=== PATIENT | male | born 1945 | race African-American/Black ===

== ENCOUNTER 2016-06-08 15:25 | Inpatient (IN) | payer SELFPAY ==
[~2016-06-08] VITALS: Ht 175.3 cm; Wt 56.7 kg
[2016-06-08] MEDS ORDERED: ZANTAC150 MG ORAL (15:46)
[2016-06-08] MEDS ORDERED: Pantoprazole Inj IV ONE (16:00)
--- NOTE | 2016-06-08 16:01 | Emergency Room Report ---
History of Present Illness General Chief Complaint: Abnormal Labs Source: Patient, Medical Record Present Illness HPI Patient sent by the [facility] for low H&H. The patient has been passing dark stool. In the past he said that he had blood transfusions - however, this is not certain. He says he's had problems with his kidneys also appeared has had dark urine and possibly passing blood in his urine earlier today. Is a history of an enlarged prostate. The patient's been symptomatic with the low H&H feeling some dyspnea on exertion and also dizziness when he stands up. Actually, with review with daughter, never received blood transfusions before. No NVD, extremity pain. No chest pain, dyspnea, productive cough, polies. Allergies: Coded Allergies: No Known Allergies (Unverified , 06/08/16) Patient History Past Medical History: see triage record Social History: Reports: smoking Social History Narrative born [place] Reviewed Nursing Documentation: PMH: Agreed, PSxH: Agreed Nursing Documentation-PMH Past Medical History: No History, Except For Hx Gastrointestinal Problems: Yes - Liver cirrhosis Review of Systems All Other Systems: negative except mentioned in HPI Physical Exam Vital Signs Date Time Temp Pulse Resp B/P Pulse Ox O2 Delivery O2 Flow Rate FiO2 06/08/16 15:38 98.2 68 16 160/71 100 Room Air Sp02 EP Interpretation: reviewed, normal General Appearance: well appearing, no apparent distress, GCS 15, thin Head: normocephalic Eyes: bilateral eye PERRL, bilateral eye conjunctivae pale ENT: moist mucus membranes Neck: supple Respiratory: lungs clear, normal breath sounds Cardiovascular #1: regular rate, rhythm Cardiovascular #2: 2+ radial (R) Gastrointestinal: normal inspection, normal bowel sounds, non tender, no mass, non-distended Rectal: heme negative stool - brown Musculoskeletal: back normal, gait/station normal, normal range of motion Neurologic: alert, oriented x3, motor strength/tone normal, DTRs symmetric, sensory intact, cerebellar normal, normal gait, speech normal Psychiatric: mood/affect normal Skin: no rash, pallor Medical Decision Making Diagnostic Impression: Primary Impression: Profound anemia Qualified Codes: D50.8 - Other iron deficiency anemias Additional Impressions: RLL mass UTI (urinary tract infection) Qualified Codes: N30.00 - Acute cystitis without hematuria Renal insufficiency ER Course The patient presents with abnormal laboratory values and low H&H with black stools. Differential includes lower GI bleed, symptomatic anemia, upper GI bleed. Stool is negative at this time. Labs remarkable for profound anemia. In addition he's got renal insufficiency. His x-ray is read as having a right lower lobe mass according to the radiologist. Belly films are unremarkable. I discussed risks and benefits of blood transfusion with the patient. He agreed to have transfusions. He became to the hospital for further evaluation. Also there is evidence of a urinary tract infection antibiotics were begun. Admit med Dr. Troncoso Laboratory Tests Test 06/08/16 16:10 06/08/16 16:16 Urine Color Pale yellow Urine Appearance Clear Urine pH 6 (4.5-8.0) Urine Specific [place] 1.010 (1.005-1.035) Urine Protein 2+ (NEGATIVE) H Urine Glucose (UA) Negative (NEGATIVE) Urine Ketones Negative (NEGATIVE) Urine Occult Blood Negative (NEGATIVE) Urine Nitrite Negative (NEGATIVE) Urine Bilirubin Negative (NEGATIVE) Urine Urobilinogen Normal MG/DL (0.0-1.0) Urine Leukocyte Esterase 2+ (NEGATIVE) H Urine RBC 5-10 /HPF (0 - 0) H Urine WBC Tntc /HPF (0 - 0) H Urine Squamous Epithelial Cells Moderate /LPF (NONE/OCC) H Urine Bacteria Moderate /HPF (NONE) H White Blood Count 8.3 K/UL (4.8-10.8) Red Blood Count 3.24 M/UL (4.70-6.10) L Hemoglobin 7.6 G/DL (14.2-18.0) L Hematocrit 24.3 % (42.0-52.0) L Mean Corpuscular Volume 75 FL (80-99) L Mean Corpuscular Hemoglobin 23.3 PG (27.0-31.0) L Mean Corpuscular Hemoglobin Concent 31.1 G/DL (32.0-36.0) L Red Cell Distribution Width 15.8 % (11.6-14.8) H Platelet Count 456 K/UL (150-450) H Mean Platelet Volume 5.9 FL (6.5-10.1) L Neutrophils (%) (Auto) % (45.0-75.0) Lymphocytes (%) (Auto) % (20.0-45.0) Monocytes (%) (Auto) % (1.0-10.0) Eosinophils (%) (Auto) % (0.0-3.0) Basophils (%) (Auto) % (0.0-2.0) Neutrophils % (Manual) Pending Lymphocytes % (Manual) Pending Platelet Estimate Pending Platelet Morphology Pending Prothrombin Time 10.6 SEC (9.30-11.50) Prothrombin Time INR 1.0 (0.9-1.1) PTT 29 SEC (23-33) Sodium Level 141 mEQ/L (135-145) Potassium Level 4.4 mEQ/L (3.4-4.9) Chloride Level 100 mEQ/L (98-107) Carbon Dioxide Level 25 mEQ/L (20-30) Anion Gap 16 (5-15) H Blood Urea Nitrogen 31 mg/dL (7-23) H Creatinine 1.6 mg/dL (0.7-1.2) H Estimate Glomerular Filtration Rate mL/min (>60) Glucose Level 84 mg/dL (74-106) Calcium Level 9.7 mg/dL (8.6-10.2) Total Bilirubin < 0.2 mg/dL (0.0-1.2) Aspartate Amino Transferase (AST) 19 U/L (5-40) Alanine Aminotransferase (ALT) 13 U/L (3-41) Alkaline Phosphatase 70 U/L (40-129) Total Creatine Kinase 137 U/L (38-174) Troponin I < 0.30 ng/mL (<=0.30) Total Protein 7.6 g/dL (6.6-8.7) Albumin 4.3 g/dL (3.5-5.2) Globulin 3.3 g/dL Albumin/Globulin Ratio 1.3 (1.0-2.7) Lipase 63 U/L (< 60) H EKG Diagnostic Results Rate: normal Rhythm: NSR ST Segments: no acute changes - LVH Rhythm Strip Diag. Results EP Interpretation: yes Rhythm: NSR, no PVC's, no ectopy Chest X-Ray Diagnostic Results EP Interpretation: Yes Findings: no effusion, no pneumothorax, other - RLL mass Number of Views: 1 Other X-Ray Diagnostic Results Other X-Ray Diagnostic Results : X-Ray Ordered: abd EP Interpretation: Yes Findings: no fractures, no dislocation, no soft tissue swelling, other - diffuse gas, no mass, no SBO Number of Views: 1 Last Vital Signs Date Time Temp Pulse Resp B/P Pulse Ox O2 Delivery O2 Flow Rate FiO2 06/08/16 15:38 98.2 68 16 160/71 100 Room Air Status: improved Disposition: ADMITTED INPATIENT Condition: Serious Paxton Scott M.D. Jun 08, 2016 16:00
[2016-06-08 16:32] LABS: MEAN CORPUSCULAR HEMOGLOBIN 23.3 PG (27.0-31.0); MEAN CORPUSCULAR HGB CONC 31.1 G/DL (32.0-36.0); MEAN CORPUSCULAR VOLUME 75 FL (80-99); MEAN PLATELET VOLUME 5.9 FL (6.5-10.1); PLATELET COUNT 456 K/UL (150-450); RED BLOOD COUNT 3.24 M/UL (4.70-6.10); RED CELL DISTRIBUTION WIDTH 15.8 % (11.6-14.8); WHITE BLOOD COUNT 8.3 K/UL (4.8-10.8)
[2016-06-08 16:59] LABS: PROTHROMBIN TIME 10.6 SEC (9.30-11.50)
--- NOTE | 2016-06-08 17:06 | Diagnostic Imaging Report ---
Indication: Abdominal pain and hematuria Technique: One view of the chest Comparison: none Findings: Bowel gas pattern is unremarkable. No unusual masses or calcifications. There are degenerative changes of the lumbar spine Impression: No acute process
[2016-06-08 17:08] LABS: APPEARANCE,URINE CLEAR; KETONES,URINE NEGATIVE (NEGATIVE); LEUKOCYTE ESTERASE ,URINE 2+ (NEGATIVE); NITRITE,URINE NEGATIVE (NEGATIVE); PH,URINE 6 (4.5-8.0); PROTEIN,URINE 2+ (NEGATIVE); UROBILINOGEN,URINE NORMAL MG/DL (0.0-1.0)
--- NOTE | 2016-06-08 17:08 | Diagnostic Imaging Report ---
Indication: BLD Technique: One view of the chest Comparison: none Findings: Lungs and pleural spaces are clear. Heart size is normal. There is suggestion of a soft tissue density projected over the right pericardiophrenic angle, only the superolateral border of which is visible. Impression: No acute process Soft tissue density projected over the right pericardiophrenic angle. Consider further evaluation with CT. This finding was discussed by phone with Dr. cSott at the time of interpretation
[2016-06-08 17:11] LABS: ALANINE AMINOTRANSFERASE 13 U/L (3-41); ALBUMIN/GLOBULIN RATIO 1.3 (1.0-2.7); ANION GAP 16 (5-15); ASPARTATE AMINO TRANSFERASE 19 U/L (5-40); CALCIUM 9.7 mg/dL (8.6-10.2); CARBON DIOXIDE 25 mEQ/L (20-30); CHLORIDE 100 mEQ/L (98-107); CREATININE 1.6 mg/dL (0.7-1.2); HEMOLYSIS 1; LIPASE 63 U/L (< 60); POTASSIUM 4.4 mEQ/L (3.4-4.9); SODIUM 141 mEQ/L (135-145); TOTAL PROTEIN 7.6 g/dL (6.6-8.7); TROPONIN I < 0.30 ng/mL (<=0.30)
[2016-06-08 17:21] LABS: BACTERIA,URINE MODERATE /HPF; SQUAMOUS EPITHELIAL CELL,UR MODERATE /LPF (NONE/OCC); WBC,URINE TNTC /HPF (0 - 0)
[2016-06-08] MEDS ORDERED: cefTRIAXone 1 GM in NS 55 ML IVPB ONE (17:30)
[2016-06-08 18:07] LABS: BASOPHILS % (MANUAL) 1 % (0-2); EOSINOPHILS % (MANUAL) 3 % (0-3); LYMPHOCYTES % (MANUAL) 31 % (20-45); NEUTROPHILS % (MANUAL) 58 % (45-75); TOTAL CELLS COUNTED 100
[2016-06-08 18:08] LABS: BAND NEUTROPHILS % (MANUAL) 0 % (0-8); PLATELET ESTIMATE INCREASED
[2016-06-08 18:09] LABS: ANISOCYTOSIS 1+; HYPOCHROMASIA 3+; MICROCYTES 2+; POLYCHROMASIA 1+
[2016-06-08 18:51] VITALS: BP 137/75
[2016-06-08 19:20] VITALS: BP 133/80
[2016-06-08 20:00] VITALS: BP 149/77
[2016-06-08 20:05] LABS: PATH BLOOD SMEAR/OMC SENT TO PATHOLOGIST
[2016-06-08 20:18] LABS: HEMOLYSIS 39; IRON 11 ug/dL (59-158); TOTAL IRON BINDING CAPACITY 446 ug/dL (250-400)
[2016-06-08 20:24] LABS: THYROID STIMULATING HORMONE 3.01 uIU/mL (0.300-4.500)
[2016-06-08] MEDS ORDERED: Zolpidem 5mg tab ORAL PRN (21:00)
[2016-06-08] MEDS ORDERED: Miralax 17gm pkt ORAL PRN (21:00)
[2016-06-08] MEDS: Docusate 100mg tablet ORAL SCH (21:08)
[2016-06-08] MEDS: Pantoprazole Inj IV SCH (21:09)
[2016-06-08] MEDS ORDERED: Iron Sucrose 100 MG in NS 55 ML IVPB SCH (23:00)
[2016-06-09] VITALS (7 sets, daily range): BP systolic 103–148; BP diastolic 47–89
[2016-06-09 07:21] LABS: BASOPHILS % (AUTO) 1.4 % (0.0-2.0); EOSINOPHILS % (AUTO) 4.3 % (0.0-3.0); LYMPHOCYTES % (AUTO) 20.8 % (20.0-45.0); MEAN CORPUSCULAR HEMOGLOBIN 22.5 PG (27.0-31.0); MEAN CORPUSCULAR HGB CONC 29.9 G/DL (32.0-36.0); MEAN CORPUSCULAR VOLUME 75 FL (80-99); MEAN PLATELET VOLUME 6.2 FL (6.5-10.1); MONOCYTES % (AUTO) 7.9 % (1.0-10.0); NEUTROPHILS % (AUTO) 65.6 % (45.0-75.0); PLATELET COUNT 464 K/UL (150-450); RED BLOOD COUNT 3.62 M/UL (4.70-6.10); WHITE BLOOD COUNT 7.9 K/UL (4.8-10.8)
[2016-06-09 07:42] LABS: ANION GAP 14 (5-15); CALCIUM 9.2 mg/dL (8.6-10.2); CARBON DIOXIDE 24 mEQ/L (20-30); CHLORIDE 105 mEQ/L (98-107); CREATININE 1.5 mg/dL (0.7-1.2); HEMOLYSIS 12; POTASSIUM 4.4 mEQ/L (3.4-4.9); SODIUM 143 mEQ/L (135-145)
[2016-06-09 09:25] LABS: BILIRUBIN,DIRECT 0.1 mg/dL (0.1-0.3); TOTAL PROTEIN 6.8 g/dL (6.6-8.7)
[2016-06-09] MEDS: Docusate 100mg tablet ORAL SCH ×2 (10:30→20:44)
[2016-06-09] MEDS: Pantoprazole Inj IV SCH ×2 (10:30→20:45)
[2016-06-09] MEDS ORDERED: Iron Sucrose 100 MG in NS 55 ML IVPB SCH ×2 (12:00→21:00)
--- NOTE | 2016-06-09 12:46 | GI Initial Consult Note ---
Cha Medellin N.P. 06/09/16 1246: History of Present Illness General Date patient seen: Jun 09, 2016 Time patient seen: 10:00 Reason for Hospitalization: Abnormal Labs Referring physician: YULIANA MURRAY Reason for Consultation: GI BLEED Present Illness HPI Patient sent by the [place] [facility] for low H&H. The patient has been passing dark stool. In the past he said that blood transfusions. He says the dorsum problem with his kidneys also appeared has had dark urine and possibly passing blood in his urine also. Is a history of an enlarged prostate. The patient's been symptomatic with the low H&H feeling some dyspnea on exertion and also dizziness when he stands up. Never received blood transfusions before. GI CONSULT: HPI as noted above. GI consulted for black stools. Pt seen on floor, awake A&Ox4 NAD with no active s/sx of N/V. Hx of BPH, liver cirrhosis. Pt presents today with c/o of dark stool and anemia, s/p 1 unit blood last night. Unknown history of endoscopic procedures. Home Meds Reported Medications Ranitidine Hcl* (ZANTAC*) 150 Mg Tablet, 150 MG ORAL TWICE A DAY, TAB 06/08/16 Med list reviewed/reconciled: Yes Allergies: Coded Allergies: No Known Allergies (Unverified , 06/08/16) Patient History History Provided By: Patient, Medical Record PMH Narrative Past Medical History: see triage record Social History Narrative born [place] Reviewed Nursing Documentation: PMH: Agreed, PSxH: Agreed Nursing Documentation-PMH Past Medical History: No History, Except For Hx Gastrointestinal Problems: Yes - Liver cirrhosis Social History: Denies: alcohol use, drug use, other, smoking Review of Systems All Other Systems: negative except mentioned in HPI Physical Exam Vital Signs Date Time Temp Pulse Resp B/P Pulse Ox O2 Delivery O2 Flow Rate FiO2 06/08/16 15:38 98.2 68 16 160/71 100 Room Air Sp02 EP Interpretation: reviewed Labs Laboratory Tests Test 06/08/16 16:10 06/08/16 16:16 06/09/16 06:05 Urine Color Pale yellow Urine Appearance Clear Urine pH 6 (4.5-8.0) Urine Specific [place] 1.010 (1.005-1.035) Urine Protein 2+ (NEGATIVE) H Urine Glucose (UA) Negative (NEGATIVE) Urine Ketones Negative (NEGATIVE) Urine Occult Blood Negative (NEGATIVE) Urine Nitrite Negative (NEGATIVE) Urine Bilirubin Negative (NEGATIVE) Urine Urobilinogen Normal MG/DL (0.0-1.0) Urine Leukocyte Esterase 2+ (NEGATIVE) H Urine RBC 5-10 /HPF (0 - 0) H Urine WBC Tntc /HPF (0 - 0) H Urine Squamous Epithelial Cells Moderate /LPF (NONE/OCC) H Urine Bacteria Moderate /HPF (NONE) H White Blood Count 8.3 K/UL (4.8-10.8) 7.9 K/UL (4.8-10.8) Red Blood Count 3.24 M/UL (4.70-6.10) L 3.62 M/UL (4.70-6.10) L Hemoglobin 7.6 G/DL (14.2-18.0) L 8.1 G/DL (14.2-18.0) L Hematocrit 24.3 % (42.0-52.0) L 27.2 % (42.0-52.0) L Mean Corpuscular Volume 75 FL (80-99) L 75 FL (80-99) L Mean Corpuscular Hemoglobin 23.3 PG (27.0-31.0) L 22.5 PG (27.0-31.0) L Mean Corpuscular Hemoglobin Concent 31.1 G/DL (32.0-36.0) L 29.9 G/DL (32.0-36.0) L Red Cell Distribution Width 15.8 % (11.6-14.8) H 16.0 % (11.6-14.8) H Platelet Count 456 K/UL (150-450) H 464 K/UL (150-450) H Mean Platelet Volume 5.9 FL (6.5-10.1) L 6.2 FL (6.5-10.1) L Neutrophils (%) (Auto) % (45.0-75.0) 65.6 % (45.0-75.0) Lymphocytes (%) (Auto) % (20.0-45.0) 20.8 % (20.0-45.0) Monocytes (%) (Auto) % (1.0-10.0) 7.9 % (1.0-10.0) Eosinophils (%) (Auto) % (0.0-3.0) 4.3 % (0.0-3.0) H Basophils (%) (Auto) % (0.0-2.0) 1.4 % (0.0-2.0) Differential Total Cells Counted 100 Neutrophils % (Manual) 58 % (45-75) Lymphocytes % (Manual) 31 % (20-45) Monocytes % (Manual) 7 % (1-10) Eosinophils % (Manual) 3 % (0-3) Basophils % (Manual) 1 % (0-2) Band Neutrophils 0 % (0-8) Platelet Estimate Increased H Platelet Morphology Giant Platelets Occasional Polychromasia 1+ Hypochromasia 3+ Anisocytosis 1+ Microcytosis 2+ Reticulocyte Count 0.7 % (0.0-2.0) Haptoglobin 237 mg/dL (30-200) H Prothrombin Time 10.6 SEC (9.30-11.50) Prothromb Time International Ratio 1.0 (0.9-1.1) Activated Partial Thromboplast Time 29 SEC (23-33) Sodium Level 141 mEQ/L (135-145) 143 mEQ/L (135-145) Potassium Level 4.4 mEQ/L (3.4-4.9) 4.4 mEQ/L (3.4-4.9) Chloride Level 100 mEQ/L (98-107) 105 mEQ/L (98-107) Carbon Dioxide Level 25 mEQ/L (20-30) 24 mEQ/L (20-30) Anion Gap 16 (5-15) H 14 (5-15) Blood Urea Nitrogen 31 mg/dL (7-23) H 25 mg/dL (7-23) H Creatinine 1.6 mg/dL (0.7-1.2) H 1.5 mg/dL (0.7-1.2) H Estimat Glomerular Filtration Rate mL/min (>60) mL/min (>60) Glucose Level 84 mg/dL (74-106) 82 mg/dL (74-106) Calcium Level 9.7 mg/dL (8.6-10.2) 9.2 mg/dL (8.6-10.2) Iron Level 11 ug/dL (59-158) L Total Iron Binding Capacity 446 ug/dL (250-400) H Percent Iron Saturation 2 % (15-50) L Unsaturated Iron Binding 435 ug/dL (112-346) H Ferritin 7 ng/mL (10-230) L Total Bilirubin < 0.2 mg/dL (0.0-1.2) 0.2 mg/dL (0.0-1.2) Aspartate Amino Transf (AST/SGOT) 19 U/L (5-40) 23 U/L (5-40) Alanine Aminotransferase (ALT/SGPT) 13 U/L (3-41) 12 U/L (3-41) Alkaline Phosphatase 70 U/L (40-129) 62 U/L (40-129) Lactate Dehydrogenase 285 U/L (135-230) H Total Creatine Kinase 137 U/L (38-174) Troponin I < 0.30 ng/mL (<=0.30) Total Protein 7.6 g/dL (6.6-8.7) 6.8 g/dL (6.6-8.7) Albumin 4.3 g/dL (3.5-5.2) 3.6 g/dL (3.5-5.2) Globulin 3.3 g/dL Albumin/Globulin Ratio 1.3 (1.0-2.7) Lipase 63 U/L (< 60) H Vitamin B12 Level 398 pg/mL (211-946) Thyroid Stimulating Hormone (TSH) 3.010 uIU/mL (0.300-4.500) Hemoglobin A Pending Hemoglobin A2 Pending Hemoglobin C Pending Hemoglobin F () Pending Hemoglobin S Pending Variant Hemoglobin Pending Hemoglobin Electrophoresis Interp Pending Hemoglobin Interpretation Pending Hemoglobin Solubility Pending Direct Bilirubin 0.1 mg/dL (0.1-0.3) Ammonia 38 umol/L (16-60) Vitamin D 25-Hydroxy Pending 25-Hydroxy Vitamin D2 Pending 25-Hydroxy Vitamin D3 Pending Folate Pending Hepatitis A IgM Antibody Pending Hepatitis B Surface Antigen Pending Hepatitis B Core IgM Antibody Pending Hepatitis C Antibody Pending General Appearance: well appearing, no apparent distress, alert, thin Head: normocephalic EENT: normal ENT inspection Neck: normal inspection, full range of motion, supple Respiratory: normal breath sounds, no respiratory distress Cardiovascular: normal rate Gastrointestinal: normal inspection, non tender, soft Rectal: deferred Neurologic: normal inspection, alert, oriented x3 Psychiatric: normal inspection, judgement/insight normal, memory normal Skin: normal inspection, normal color, no rash, warm/dry Lymphatic: normal inspection Current Medications Current Medications Medications (Trade) Dose Ordered Sig/Sudarshan Route PRN Reason Start Time Stop Time Status Last Admin Dose Admin Acetaminophen (Tylenol) 650 mg Q4H PRN ORAL Mild Pain (Pain Scale 1-3) 06/08/16 18:45 07/08/16 18:44 Bisacodyl (Dulcolax) 10 mg HSPRN PRN RECTAL Constipation 06/08/16 21:00 07/08/16 20:59 Ceftriaxone Sodium 1 gm/ Dextrose 55 ml @ 110 mls/hr Q24HRS IVPB 06/09/16 17:00 06/16/16 16:59 Dextrose (Dextrose 50%) STAT PRN IV Hypoglycemia 06/08/16 18:45 07/08/16 18:44 Diphenhydramine HCl (Benadryl) 25 mg Q6H PRN ORAL Itching/Pruritis 06/08/16 18:45 07/08/16 18:44 Docusate Sodium (Colace) 100 mg EVERY 12 HOURS ORAL 06/08/16 21:00 07/08/16 20:59 06/09/16 10:30 Iron Sucrose/ Sodium Chloride (Venofer/Sodium Chloride) 60 ml @ 240 mls/hr QHS IVPB 06/09/16 12:00 06/13/16 21:14 Ondansetron HCl (Zofran) 4 mg Q6H PRN IVP Nausea & Vomiting 06/08/16 18:45 07/08/16 18:44 Pantoprazole (Protonix) 40 mg Q12HR IV 06/08/16 21:00 07/08/16 20:59 06/09/16 10:30 Polyethylene Glycol (Miralax) 17 gm HSPRN PRN ORAL Constipation 06/08/16 21:00 07/08/16 20:59 Ranitidine HCl 150 mg 150 mg TWICE A DAY PRN ORAL heartburn 06/08/16 18:45 07/08/16 18:44 Sodium Chloride 1,000 ml @ 100 mls/hr Q10H IV 06/09/16 09:00 07/09/16 08:59 06/09/16 10:48 Zolpidem Tartrate (Ambien) 5 mg HSPRN PRN ORAL Insomnia 06/08/16 21:00 07/08/16 20:59 GI: Plan Problems: (1) Dehydration (2) Severe malnutrition (3) Dark stools (4) Profound anemia Plan KUB reviewed >> negative s/p blood transfusion 1 unit last night pt scheduled for EGD tomorrow. - CLD, NPO @ [facility]. anemia work up monitor H&H, transfuse prn ppi BID fu hep panel fu labs Discussed with Dr. Foley. Thank you for referring this patient, we will follow. ESTRELLITA FOLEY 06/10/16 0737: History of Present Illness General Reason for Hospitalization: Abnormal Labs Present Illness Home Meds Reported Medications Ranitidine Hcl* (ZANTAC*) 150 Mg Tablet, 150 MG ORAL TWICE A DAY, TAB 06/08/16 Allergies: Coded Allergies: No Known Allergies (Unverified , 06/08/16) GI: Plan Plan The patient was seen and examined at bedside and all new and available data was reviewed in the patients chart. I agree with the above findings, impression and plan. (Patient seen earlier today. Signature stamp does not reflect patient encounter time.). -Vciky Rivera MDh Reymundo Cortez Jun 09, 2016 12:46 ESTRELLITA FOLEY Jun 10, 2016 07:37
--- NOTE | 2016-06-09 14:43 | Diagnostic Imaging Report ---
Indication: COUGH Technique: One view of the chest Comparison: 06/08/2016 Findings: Lungs remain hyperinflated. Lungs and pleural spaces remain clear, except for an opacity in the right pericardial phrenic sulcus which remains unchanged. The heart size is normal. Impression: Unchanged, over one day, findings as above.
--- NOTE | 2016-06-09 15:26 | History and Physical ---
History of Present Illness General Date patient seen: Jun 08, 2016 Time patient seen: 19:00 Reason for Hospitalization: Abnormal Labs, dark to black stools Present Illness HPI 71y/o male with pmh of alcoholic cirrhosis (per family) c/b ascites, GERD who presents with anemia and dark to black stools. Pt recently moved to [place] from [place] abt 1 month ago and is living with his family including his daughters. Pt was seen at [facility] where labs revealed hgb in 6's per daughter. Pt was instructed to present to ED for further evaluation. Pt c/o generalized weakness , poor appetite, some BOB, lightheadedness. He states he has noted dark to black stools. Denies BRBPR, f/c, n/v, hematemesis, chest pain, SOB, dysuria. Pt has a history of alcohol abuse for many years but states he quit abt 1 month ago. He is also a long time tobacco smoker but states he has quit that as well recently. Pt denies h/o prior blood transfusions. No h/o GI bleed. States he has never had an endoscopy. He states he was diagnosed w/ cirrhosis a few years ago in [place]. In ED, pt's Hgb noted to be 7.6. Per ED physician, guaiac stool was neg. He was given 1U pRBC. Allergies: Coded Allergies: No Known Allergies (Unverified , 06/08/16) Medication History Scheduled Ranitidine Hcl* (Zantac*), 150 MG ORAL TWICE A DAY, (Reported) Patient History History Provided By: Patient, Family Member, Medical Record Healthcare decision maker pt alert and oriented x4 Resuscitation status Full Code Advanced Directive on File Family History Family History: Patient reports no known family medical history. Social History Social History: (1) History of alcohol abuse (2) Former smoker Review of Systems Constitutional: Reports: weakness Eye: Reports: no symptoms ENT: Reports: no symptoms Respiratory: Reports: BOB Cardiovascular: Reports: no symptoms Gastrointestinal: Reports: melena Genitourinary: Reports: no symptoms Musculoskeletal: Reports: no symptoms Skin: Reports: no symptoms Psychiatric: Reports: no symptoms Neurological: Reports: no symptoms Endocrine: Reports: no symptoms Hematologic/Lymphatic: Reports: anemia Physical Exam Physical Exam Narrative General: alert, cooperative, no distress, appears stated age, thin Head: normocephalic, without obvious abnormality, atraumatic Eyes: conjunctivae/corneas clear. PERRL, EOM's intact Throat: lips, mucosa, and tongue normal. MMM Neck: supple, symmetrical, trachea midline, and no JVD Lungs: clear to auscultation bilaterally Heart: regular rate and rhythm, S1, S2 normal, no murmur, click, rub or gallop Abdomen: soft, non-tender, non-distended, bowel sounds normal; no masses or organomegaly Extremities: extremities normal, atraumatic, no cyanosis or edema Pulses: 2+ and symmetric Skin: skin color, texture, turgor normal; no rashes or lesions Neurologic: grossly normal, no focal deficits Last 24 Hour Vital Signs Date Time Temp Pulse Resp B/P Pulse Ox O2 Delivery O2 Flow Rate FiO2 06/09/16 12:19 97.9 59 19 144/86 100 Room Air 06/09/16 08:04 97.7 64 19 103/47 100 Room Air 06/09/16 04:00 97.5 65 18 143/81 99 Room Air 06/09/16 00:00 97.7 66 20 135/86 98 Room Air 06/08/16 20:00 97.9 64 20 149/77 100 Room Air 06/08/16 20:00 97.9 64 20 149/77 100 Room Air 06/08/16 19:30 98.6 72 16 143/84 100 Room Air 06/08/16 19:20 98.6 72 16 133/80 100 Room Air 06/08/16 19:20 98.7 65 16 06/08/16 19:05 98.6 66 16 06/08/16 18:51 98.2 72 21 137/75 100 Room Air 06/08/16 15:38 98.2 68 16 160/71 100 Room Air Intake and Output 06/08/16 06/09/16 19:00 07:00 Intake Total 240 ml 1000 ml Output Total 1000 ml Balance 240 ml 0 ml Intake Oral 240 ml IV Total 1000 ml Output Urine Total 1000 ml # Voids 4 # Bowel Movements 1 Laboratory Tests Test 06/08/16 16:10 06/08/16 16:16 06/09/16 06:05 Urine Color Pale yellow Urine Appearance Clear Urine pH 6 (4.5-8.0) Urine Specific Coleman 1.010 (1.005-1.035) Urine Protein 2+ (NEGATIVE) H Urine Glucose (UA) Negative (NEGATIVE) Urine Ketones Negative (NEGATIVE) Urine Occult Blood Negative (NEGATIVE) Urine Nitrite Negative (NEGATIVE) Urine Bilirubin Negative (NEGATIVE) Urine Urobilinogen Normal MG/DL (0.0-1.0) Urine Leukocyte Esterase 2+ (NEGATIVE) H Urine RBC 5-10 /HPF (0 - 0) H Urine WBC Tntc /HPF (0 - 0) H Urine Squamous Epithelial Cells Moderate /LPF (NONE/OCC) H Urine Bacteria Moderate /HPF (NONE) H White Blood Count 8.3 K/UL (4.8-10.8) 7.9 K/UL (4.8-10.8) Red Blood Count 3.24 M/UL (4.70-6.10) L 3.62 M/UL (4.70-6.10) L Hemoglobin 7.6 G/DL (14.2-18.0) L 8.1 G/DL (14.2-18.0) L Hematocrit 24.3 % (42.0-52.0) L 27.2 % (42.0-52.0) L Mean Corpuscular Volume 75 FL (80-99) L 75 FL (80-99) L Mean Corpuscular Hemoglobin 23.3 PG (27.0-31.0) L 22.5 PG (27.0-31.0) L Mean Corpuscular Hemoglobin Concent 31.1 G/DL (32.0-36.0) L 29.9 G/DL (32.0-36.0) L Red Cell Distribution Width 15.8 % (11.6-14.8) H 16.0 % (11.6-14.8) H Platelet Count 456 K/UL (150-450) H 464 K/UL (150-450) H Mean Platelet Volume 5.9 FL (6.5-10.1) L 6.2 FL (6.5-10.1) L Neutrophils (%) (Auto) % (45.0-75.0) 65.6 % (45.0-75.0) Lymphocytes (%) (Auto) % (20.0-45.0) 20.8 % (20.0-45.0) Monocytes (%) (Auto) % (1.0-10.0) 7.9 % (1.0-10.0) Eosinophils (%) (Auto) % (0.0-3.0) 4.3 % (0.0-3.0) H Basophils (%) (Auto) % (0.0-2.0) 1.4 % (0.0-2.0) Differential Total Cells Counted 100 Neutrophils % (Manual) 58 % (45-75) Lymphocytes % (Manual) 31 % (20-45) Monocytes % (Manual) 7 % (1-10) Eosinophils % (Manual) 3 % (0-3) Basophils % (Manual) 1 % (0-2) Band Neutrophils 0 % (0-8) Platelet Estimate Increased H Platelet Morphology Giant Platelets Occasional Polychromasia 1+ Hypochromasia 3+ Anisocytosis 1+ Microcytosis 2+ Reticulocyte Count 0.7 % (0.0-2.0) Haptoglobin 237 mg/dL (30-200) H Prothrombin Time 10.6 SEC (9.30-11.50) Prothromb Time International Ratio 1.0 (0.9-1.1) Activated Partial Thromboplast Time 29 SEC (23-33) Sodium Level 141 mEQ/L (135-145) 143 mEQ/L (135-145) Potassium Level 4.4 mEQ/L (3.4-4.9) 4.4 mEQ/L (3.4-4.9) Chloride Level 100 mEQ/L (98-107) 105 mEQ/L (98-107) Carbon Dioxide Level 25 mEQ/L (20-30) 24 mEQ/L (20-30) Anion Gap 16 (5-15) H 14 (5-15) Blood Urea Nitrogen 31 mg/dL (7-23) H 25 mg/dL (7-23) H Creatinine 1.6 mg/dL (0.7-1.2) H 1.5 mg/dL (0.7-1.2) H Estimat Glomerular Filtration Rate mL/min (>60) mL/min (>60) Glucose Level 84 mg/dL (74-106) 82 mg/dL (74-106) Calcium Level 9.7 mg/dL (8.6-10.2) 9.2 mg/dL (8.6-10.2) Iron Level 11 ug/dL (59-158) L Total Iron Binding Capacity 446 ug/dL (250-400) H Percent Iron Saturation 2 % (15-50) L Unsaturated Iron Binding 435 ug/dL (112-346) H Ferritin 7 ng/mL (10-230) L Total Bilirubin < 0.2 mg/dL (0.0-1.2) 0.2 mg/dL (0.0-1.2) Aspartate Amino Transf (AST/SGOT) 19 U/L (5-40) 23 U/L (5-40) Alanine Aminotransferase (ALT/SGPT) 13 U/L (3-41) 12 U/L (3-41) Alkaline Phosphatase 70 U/L (40-129) 62 U/L (40-129) Lactate Dehydrogenase 285 U/L (135-230) H Total Creatine Kinase 137 U/L (38-174) Troponin I < 0.30 ng/mL (<=0.30) Total Protein 7.6 g/dL (6.6-8.7) 6.8 g/dL (6.6-8.7) Albumin 4.3 g/dL (3.5-5.2) 3.6 g/dL (3.5-5.2) Globulin 3.3 g/dL Albumin/Globulin Ratio 1.3 (1.0-2.7) Lipase 63 U/L (< 60) H Vitamin B12 Level 398 pg/mL (211-946) Thyroid Stimulating Hormone (TSH) 3.010 uIU/mL (0.300-4.500) Hemoglobin A Pending Hemoglobin A2 Pending Hemoglobin C Pending Hemoglobin F () Pending Hemoglobin S Pending Variant Hemoglobin Pending Hemoglobin Electrophoresis Interp Pending Hemoglobin Interpretation Pending Hemoglobin Solubility Pending Direct Bilirubin 0.1 mg/dL (0.1-0.3) Ammonia 38 umol/L (16-60) Vitamin D 25-Hydroxy Pending 25-Hydroxy Vitamin D2 Pending 25-Hydroxy Vitamin D3 Pending Folate Pending Hepatitis A IgM Antibody Pending Hepatitis B Surface Antigen Pending Hepatitis B Core IgM Antibody Pending Hepatitis C Antibody Pending Microbiology Date/Time Source Procedure Growth Status 06/08/16 16:10 Urine,Clean Catch Urine Culture - Preliminary Resulted Height (Feet): 5 Height (Inches): 9.00 Weight (Pounds): 126 Medications Current Medications Medications (Trade) Dose Ordered Sig/Sudarshan Route PRN Reason Start Time Stop Time Status Last Admin Dose Admin Acetaminophen (Tylenol) 650 mg Q4H PRN ORAL Mild Pain (Pain Scale 1-3) 06/08/16 18:45 07/08/16 18:44 Bisacodyl (Dulcolax) 10 mg HSPRN PRN RECTAL Constipation 06/08/16 21:00 07/08/16 20:59 Ceftriaxone Sodium 1 gm/ Dextrose 55 ml @ 110 mls/hr Q24HRS IVPB 06/09/16 17:00 06/16/16 16:59 Dextrose (Dextrose 50%) STAT PRN IV Hypoglycemia 06/08/16 18:45 07/08/16 18:44 Diphenhydramine HCl (Benadryl) 25 mg Q6H PRN ORAL Itching/Pruritis 06/08/16 18:45 07/08/16 18:44 Docusate Sodium (Colace) 100 mg EVERY 12 HOURS ORAL 06/08/16 21:00 07/08/16 20:59 06/09/16 10:30 Iron Sucrose/ Sodium Chloride (Venofer/Sodium Chloride) 60 ml @ 240 mls/hr QHS IVPB 06/09/16 12:00 06/13/16 21:14 06/09/16 12:48 Ondansetron HCl (Zofran) 4 mg Q6H PRN IVP Nausea & Vomiting 06/08/16 18:45 07/08/16 18:44 Pantoprazole (Protonix) 40 mg Q12HR IV 06/08/16 21:00 07/08/16 20:59 06/09/16 10:30 Polyethylene Glycol (Miralax) 17 gm HSPRN PRN ORAL Constipation 06/08/16 21:00 07/08/16 20:59 Ranitidine HCl 150 mg 150 mg TWICE A DAY PRN ORAL heartburn 06/08/16 18:45 07/08/16 18:44 Sodium Chloride 1,000 ml @ 100 mls/hr Q10H IV 06/09/16 09:00 07/09/16 08:59 06/09/16 10:48 Zolpidem Tartrate (Ambien) 5 mg HSPRN PRN ORAL Insomnia 06/08/16 21:00 07/08/16 20:59 Assessment/Plan Problem List: (1) Profound anemia ICD Codes: D64.9 - Anemia, unspecified SNOMED: 981558597 Qualifiers: Qualified Codes: D50.8 - Other iron deficiency anemias (2) Dark stools ICD Codes: R19.5 - Other fecal abnormalities SNOMED: 95186397 (3) Severe malnutrition ICD Codes: E43 - Unspecified severe protein-calorie malnutrition SNOMED: 80869757 (4) UTI (urinary tract infection) ICD Codes: N39.0 - Urinary tract infection, site not specified SNOMED: 17306649 Qualifiers: Qualified Codes: N30.00 - Acute cystitis without hematuria (5) Renal insufficiency ICD Codes: N28.9 - Disorder of kidney and ureter, unspecified SNOMED: 048908147 (6) History of alcohol abuse ICD Codes: Z87.898 - Personal history of other specified conditions SNOMED: 089969668 (7) Dehydration ICD Codes: E86.0 - Dehydration SNOMED: 49019913 Status: stable Assessment/Plan Family notes history of cirrhosis but labs do not confirm this as pt with normal albumin, normal INR, normal platelets Concern for upper GI bleed given reports of dark to black stools, possibly melena. Etiology may be 2/2 PUD vs less likely esophageal varices as pt currently w/ no signs of decompensated cirrhosis Admit to inpt GI consulted PPI IV BID s/p 1U pRBC on 06/08 Trend CBC Transfuse for hgb<7 or active bleeding Check U/S abd given history of possible cirrhosis Air Route Traffic Controller consult IVFs Pain control, bowel regimen, supportive care FULL CODE Eduardo Richmond M.D. Jun 09, 2016 15:26
--- NOTE | 2016-06-09 16:42 | Diagnostic Imaging Report ---
Indication: Abdominal distention Technique: Marroquin-scale and duplex images of the upper abdomen were obtained Comparison: None Findings: Gallbladder is unremarkable, without stones, wall thickening, nor pericholecystic fluid. Sonographic Braxotn's sign is negative. Common bile duct measures 7 mm in diameter. No intrahepatic biliary ductal dilatation. Liver demonstrates normal echogenicity, no focal abnormality. Unremarkable inferior vena cava Portal vein and hepatic veins are patent. Pancreas is unremarkable. Except that the pancreatic duct is ectatic, measuring up to 5 mm in diameter Spleen is unremarkable. Left kidney measures 10.1 cm in length. Right kidney measures 9 cm length. Both kidneys demonstrate normal echogenicity. There is no hydronephrosis. Prominent hernias are seen in the left kidney . Abdominal aorta is partially obscured by bowel gas, visualized portions are non-aneurysmal . The bladder wall is heavily trabeculated. The bladder is somewhat distended. There is a polypoid mass protruding into the bladder lumen which measures approximately 3.4 cm diameter. There also appears to be debris within the bladder. Impression: 3.4 cm polypoid mass protruding into the bladder lumen. While this could represent a prominent prostate indenting the bladder floor, mucosal neoplasm is definitely a possibility. Consider cystoscopy for further evaluation Heavily trabeculated bladder wall, likely secondary to chronic bladder obstruction Debris within the bladder, nonspecific Negative for gallstones. Mild extra hepatic biliary ductal dilatation. May be age-related, downstream obstruction not excludable. Correlate with liver function tests, consider MRCP if clinically indicated Note nonvisualization of the distal aorta
[2016-06-09] MEDS ORDERED: cefTRIAXone 1 GM in D5W 55 ML IVPB SCH (17:00)
--- NOTE | 2016-06-09 17:27 | Diagnostic Imaging Report ---
Clinical Indication: Cough, possible mass Technique: Spiral acquisitions obtained through the chest. No IV contrast utilized, due to renal insufficiency and per referring physician request. Multiplanar reconstructions generated. Total dose length product 480 mGycm. CTDIvol(s) 11 mGy. Dose reduction achieved using automated exposure control Comparison: Chest radiograph of earlier the same Findings: The coronal images demonstrate a focal lobulation of the right hemidiaphragm into which protrudes a portion of the dome of the liver. This accounts for the opacity described on recent chest radiograph There is a linear opacity in the medial lingula on the left. There is a focal cystic space the anterior left upper lobe. Lungs are equivocally slightly hyperinflated. There is a 1 mm nodular opacity in the periphery of the right upper lobe, image 40 of series 5. The lungs are otherwise clear. No infiltrates, effusions, or congestion. The heart size is normal. No pericardial effusion. No mediastinal or hilar mass or adenopathy. The included thyroid is unremarkable. No axillary or chest wall mass or adenopathy. The esophagus is unremarkable. There is severe disc narrowing and endplate irregularity at L1-2. There are associated proliferative changes the bones are otherwise unremarkable. The included upper abdominal viscera are remarkable for an equivocal tiny calculus in the left renal upper pole. Impression:. Focal eventration of the right hemidiaphragm, into which protrudes a portion of the liver. This accounts for the masslike opacity described on recent chest radiograph. Hyperinflation and a single small cystic space, consistent with COPD No acute process 1 mm nodular opacity in the right upper lobe. If there is significant smoking history or other risk factors for lung carcinoma, then followup CT at 6 months to one year is recommended Severe disc narrowing and adjacent endplate irregularity at L1-2. Probably on the basis of degenerative change. However given the isolation and severity of the findings, the possibility of infection should be entertained. Correlate with clinical findings, consider contrast MRI if clinically indicated Equivocal tiny nonobstructive left upper pole renal calculus incidentally noted The CT scanner at [facility] is accredited by the [employer] and the scans are performed using protocols designed to limit radiation exposure to as low as reasonably achievable to attain images of sufficient resolution adequate for diagnostic evaluation.
[2016-06-09] MEDS ORDERED: D5 1/2NS 1,000 ML IV SCH (23:30)
--- NOTE | 2016-06-09 23:41 | General Progress Note ---
Assessment/Plan Problem List: (1) Profound anemia ICD Codes: D64.9 - Anemia, unspecified SNOMED: 690215538 Qualifiers: Qualified Codes: D50.8 - Other iron deficiency anemias (2) Dark stools ICD Codes: R19.5 - Other fecal abnormalities SNOMED: 36395556 (3) Severe malnutrition ICD Codes: E43 - Unspecified severe protein-calorie malnutrition SNOMED: 58509912 (4) UTI (urinary tract infection) ICD Codes: N39.0 - Urinary tract infection, site not specified SNOMED: 46549085 Qualifiers: Qualified Codes: N30.00 - Acute cystitis without hematuria (5) Renal insufficiency ICD Codes: N28.9 - Disorder of kidney and ureter, unspecified SNOMED: 888326042 (6) History of alcohol abuse ICD Codes: Z87.898 - Personal history of other specified conditions SNOMED: 436992182 (7) Dehydration ICD Codes: E86.0 - Dehydration SNOMED: 49554215 Subjective Date patient seen: Jun 09, 2016 Time patient seen: 13:00 ROS Limited/Unobtainable: No Allergies: Coded Allergies: No Known Allergies (Unverified , 06/08/16) Objective Last 24 Hour Vital Signs Date Time Temp Pulse Resp B/P Pulse Ox O2 Delivery O2 Flow Rate FiO2 06/09/16 20:00 98.6 68 20 148/86 98 Room Air 06/09/16 16:00 97.7 62 18 143/83 100 Room Air 06/09/16 12:19 97.9 59 19 144/86 100 Room Air 06/09/16 08:04 97.7 64 19 103/47 100 Room Air 06/09/16 04:00 97.5 65 18 143/81 99 Room Air 06/09/16 00:00 97.7 66 20 135/86 98 Room Air Intake and Output 06/08/16 06/09/16 19:00 07:00 Intake Total 240 ml 1000 ml Output Total 1000 ml Balance 240 ml 0 ml Intake Oral 240 ml IV Total 1000 ml Output Urine Total 1000 ml # Voids 4 # Bowel Movements 1 Laboratory Tests 06/09/16 06:05: White Blood Count 7.9, Red Blood Count 3.62L, Hemoglobin 8.1L, Hematocrit 27.2L , Mean Corpuscular Volume 75L, Mean Corpuscular Hemoglobin 22.5L, Mean Corpuscular Hemoglobin Concent 29.9L, Red Cell Distribution Width 16.0H, Platelet Count 464H, Mean Platelet Volume 6.2L, Neutrophils (%) (Auto) 65.6, Lymphocytes (%) (Auto) 20.8, Monocytes (%) (Auto) 7.9, Eosinophils (%) (Auto) 4.3H, Basophils (%) (Auto) 1.4, Hemoglobin A [Pending], Hemoglobin A2 [Pending] , Hemoglobin C [Pending], Hemoglobin F () [Pending], Hemoglobin S [Pending] , Variant Hemoglobin [Pending], Hemoglobin Electrophoresis Interp [Pending], Hemoglobin Interpretation [Pending], Hemoglobin Solubility [Pending], Sodium Level 143, Potassium Level 4.4, Chloride Level 105, Carbon Dioxide Level 24, Anion Gap 14, Blood Urea Nitrogen 25H, Creatinine 1.5H, Estimat Glomerular Filtration Rate , Glucose Level 82, Calcium Level 9.2, Total Bilirubin 0.2, Direct Bilirubin 0.1, Aspartate Amino Transf (AST/SGOT) 23, Alanine Aminotransferase (ALT/SGPT) 12, Alkaline Phosphatase 62, Ammonia 38, Total Protein 6.8, Albumin 3.6, Vitamin D 25-Hydroxy [Pending], 25-Hydroxy Vitamin D2 [Pending], 25-Hydroxy Vitamin D3 [Pending], Folate [Pending], Hepatitis A IgM Antibody [Pending], Hepatitis B Surface Antigen [Pending], Hepatitis B Core IgM Antibody [Pending], Hepatitis C Antibody [Pending] Height (Feet): 5 Height (Inches): 9.00 Weight (Pounds): 125 Eduardo Richmond M.D. Jun 09, 2016 23:41
[2016-06-10] VITALS (7 sets, daily range): BP systolic 140–159; BP diastolic 76–83
[2016-06-10 06:58] LABS: BASOPHILS % (AUTO) 1.1 % (0.0-2.0); EOSINOPHILS % (AUTO) 3.2 % (0.0-3.0); LYMPHOCYTES % (AUTO) 19.3 % (20.0-45.0); MEAN CORPUSCULAR HGB CONC 29.1 G/DL (32.0-36.0); MEAN CORPUSCULAR VOLUME 76 FL (80-99); MONOCYTES % (AUTO) 7.9 % (1.0-10.0); NEUTROPHILS % (AUTO) 68.5 % (45.0-75.0); PLATELET COUNT 529 K/UL (150-450); RED BLOOD COUNT 3.89 M/UL (4.70-6.10); RED CELL DISTRIBUTION WIDTH 16.3 % (11.6-14.8); WHITE BLOOD COUNT 7.9 K/UL (4.8-10.8)
[2016-06-10] MEDS ORDERED: NS 550ML IV ONE (07:00)
[2016-06-10] MEDS ORDERED: Propofol 10mg/ml 20ml IV ONE (07:00)
--- NOTE | 2016-06-10 07:02 | Pre-Procedure Note/Attestation ---
Pre-Procedure Note/Attestation Complete Prior to Procedure Planned Procedure: not applicable Procedure Narrative: egd Indications for Procedure Pre-Operative Diagnosis: GIB Attestation I attest that I discussed the nature of the procedure; its benefits; risks and complications; and alternatives (and the risks and benefits of such alternatives ), prior to the procedure, with the patient (or the patient's legal energy conservation representative). I attest that, if there was a reasonable possibility of needing a blood transfusion, the patient (or the patient's legal energy conservation representative) was given the [facility] standardized written summary, pursuant to the [place] Blood Safety Act ([place] Health and Safety Code # 1645, as amended). I attest that I re-evaluated the patient just prior to the surgery and that there has been no change in the patient's H&P, except as documented below: ESTRELLITA FOLEY Jun 10, 2016 07:02
[2016-06-10 07:09] LABS: INR 1.1 (0.9-1.1); PROTHROMBIN TIME 10.9 SEC (9.30-11.50)
[2016-06-10 07:12] LABS: ANION GAP 15 (5-15); CALCIUM 9.1 mg/dL (8.6-10.2); CARBON DIOXIDE 25 mEQ/L (20-30); CHLORIDE 99 mEQ/L (98-107); CREATININE 1.3 mg/dL (0.7-1.2); HEMOLYSIS 5; POTASSIUM 4.1 mEQ/L (3.4-4.9); SODIUM 139 mEQ/L (135-145)
--- NOTE | 2016-06-10 07:13 | Endoscopy Procedure Note ---
Endoscopy Procedure Note Indication for Procedure: gib Procedures Performed: EGD Operative Findings/Diagnosis: gastritis Specimen: yes Pt Tolerated Procedure Well: Yes Estimated Blood Loss: none Anesthesiologist: janell Anesthesia: MAC Implant(s) used?: No 50 yrs or older w/o bx or poly: Not Applicable 10yrs. F/U not recommended: Not Applicable ESTRELLITA FOLEY Jun 10, 2016 07:13
--- NOTE | 2016-06-10 07:18 | Anethesia Preoperative Eval ---
Anesthesia Pre-op PMH/ROS General Date of Evaluation: Jun 10, 2016 Time of Evaluation: 06:50 Anesthesiologist: janell ASA Score: ASA 3 Mallampati Score Class I : Soft palate, uvula, fauces, pillars visible Class II: Soft palate, uvula, fauces visible Class III: Soft palate, base of uvula visible Class IV: Only hard plate visible Mallampati Classification: Class II Surgeon: natanael Diagnosis: anemia Surgical Procedure: egd Anesthesia History: none Allergies: Coded Allergies: No Known Allergies (Unverified , 06/08/16) Past Medical History Cardiovascular: Reports: HTN Gastrointestinal/Genitourinary: 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 Exam Physician Exam Last Vital Signs Date Time Temp Pulse Resp B/P Pulse Ox O2 Delivery O2 Flow Rate FiO2 06/10/16 04:00 97.8 59 20 159/83 97 Room Air Airway Exam Mallampati Score: Class II Teeth: missing Anesthesia Pre-op A/P Labs Hematology Test 06/10/16 06:49 White Blood Count 7.9 K/UL (4.8-10.8) Red Blood Count 3.89 M/UL (4.70-6.10) L Hemoglobin 8.6 G/DL (14.2-18.0) L Hematocrit 29.4 % (42.0-52.0) L Mean Corpuscular Volume 76 FL (80-99) L Mean Corpuscular Hemoglobin 22.0 PG (27.0-31.0) L Mean Corpuscular Hemoglobin Concent 29.1 G/DL (32.0-36.0) L Red Cell Distribution Width 16.3 % (11.6-14.8) H Platelet Count 529 K/UL (150-450) H Mean Platelet Volume 6.0 FL (6.5-10.1) L Neutrophils (%) (Auto) 68.5 % (45.0-75.0) Lymphocytes (%) (Auto) 19.3 % (20.0-45.0) L Monocytes (%) (Auto) 7.9 % (1.0-10.0) Eosinophils (%) (Auto) 3.2 % (0.0-3.0) H Basophils (%) (Auto) 1.1 % (0.0-2.0) Coagulation Test 06/10/16 06:49 Prothrombin Time Pending Prothromb Time International Ratio Pending Activated Partial Thromboplast Time Pending Chemistry Test 06/10/16 06:49 Sodium Level 139 mEQ/L (135-145) Potassium Level 4.1 mEQ/L (3.4-4.9) Chloride Level 99 mEQ/L (98-107) Carbon Dioxide Level 25 mEQ/L (20-30) Anion Gap 15 (5-15) Blood Urea Nitrogen 17 mg/dL (7-23) Creatinine 1.3 mg/dL (0.7-1.2) H Estimat Glomerular Filtration Rate mL/min (>60) Glucose Level 86 mg/dL (74-106) Calcium Level 9.1 mg/dL (8.6-10.2) Risk Assessment & Plan Plan: propofol Status Change Before Surgery: Aaron Ambriz MD Jun 10, 2016 07:18
--- NOTE | 2016-06-10 07:18 | Immediate Post-Op Evaluation ---
Immediate Post-Op Evalulation Immediate Post-Op Evalulation Date of Evaluation: Jun 10, 2016 Time of Evaluation: 07:35 IV Fluids: 300 Blood Pressure Systolic: 145 Blood Pressure Diastolic: 82 Pulse Rate: 64 Respiratory Rate: 26 O2 Sat by Pulse Oximetry: 100 Temperature (Fahrenheit): 98.6 Pain Score (1-10): 0 Nausea: No Vomiting: No Complications non Patient Status: awake, patent, none Hydration Status: adequate Aaron Guardado MD Jun 10, 2016 07:18
--- NOTE | 2016-06-10 07:19 | 48 Hour Post Anesthesia Eval ---
Post Anesthesia Evaluation Date of Evaluation: Jun 10, 2016 Time of Evaluation: 07:55 Blood Pressure Systolic: 140 0: 76 Pulse Rate: 61 Respiratory Rate: 20 Temperature (Fahrenheit): 98.6 O2 Sat by Pulse Oximetry: 100 Airway: patent Nausea: No Vomiting: No Pain Intensity: 0 Hydration Status: adequate Cardiopulmonary Status: stable Mental Status/LOC: patient returned to baseline Follow-up Care/Observations: n/a Post-Anesthesia Complications: tolerated well Follow-up care needed: N/A Aaron Guardado MD Jun 10, 2016 07:19
--- NOTE | 2016-06-10 08:45 | Discharge Instructions ---
Discharge Instructions Discharge Instructions Follow up with: F/u with primary care doctor within 1 week Call MD/Return to Hospital if: Fevers/chills, chest pain, SOB Diet: regular Resume Normal Activity?: Yes Activity: resume normal activities For Congestive Heart Failure Reminder Report to your physician any weight gain of 5 pounds or more in one week. Eduardo Richmond M.D. Jun 10, 2016 08:45
[2016-06-10] MEDS ORDERED: FERROUS SULFAT325 M2 ORAL (08:50)
[2016-06-10 09:17] LABS: OTHERS PATHOLOGIST COMMENT
--- NOTE | 2016-06-10 10:08 | Procedure Note ---
DATE OF PROCEDURE: 06/10/2016 SURGEON: Souleymane Carson M.D. ANESTHESIOLOGIST: . PROCEDURE: Upper endoscopy with biopsy. INSTRUMENT: Olympus adult flexible upper endoscope. INDICATION: Upper GI bleeding. REASON FOR PROCEDURE: The procedure, risks, benefits, and possible consequences, including hemorrhage, aspiration, perforation and infection, and alternative treatments, were explained to the patient/legal guardian by Dr. Souleymane Carson and the patient/legal guardian understood and accepted these risks. DESCRIPTION OF PROCEDURE: After informed consent was obtained and the patient was adequately sedated, Olympus upper endoscope was advanced from mouth into the second portion of the duodenum and retroflexion was performed in the stomach. The patient had diffuse gastritis. No obvious upper GI bleeding source at this time. The patient had evidence of mild peeling off of the distal esophageal mucosa suggestive of distal esophagitis. Small hiatal hernia. Random biopsy from antrum was obtained to rule out H. pylori infection. At this time, the scope was retrieved and procedure was terminated. FINDINGS: 1. Small hiatal hernia. 2. Mild distal esophagitis with peeling off of the mucosa. 3. Gastritis, status post biopsy. RECOMMENDATIONS: Follow up biopsy results and treat accordingly. I want to thank, Dr. Troncoso, for this kind referral. Souleymane Carson M.D. DR: ELIZABETH JOB#: [id number] CC: Santiago Troncoso M.D.; Fax#: [phone]
[2016-06-10] MEDS: Docusate 100mg tablet ORAL SCH (10:25)
[2016-06-10] MEDS: Pantoprazole Inj IV SCH (10:27)
[2016-06-10] MEDS ORDERED: D5 1/2NS 1000ml IV ONE (12:59)
--- NOTE | 2016-06-10 14:27 | Cardiology Report ---
APPROVED REPORT EKG Measurement Heart [id number] Normal sinus rhythm Voltage criteria for left ventricular hypertrophy Abnormal ECG
--- NOTE | 2016-06-10 16:33 | Discharge Summary ---
Discharge Summary Hospital Course Date of Admission Jun 08, 2016 at 17:21 Date of Discharge Jun 10, 2016 at 13:00 Admitting Diagnosis profound anemia ML Goldberg is a 71 year old male who was admitted on Jun 08, 2016 at 17:21 for Profound Anemia Discharge Condition Upon Discharge: stable Discharge Disposition Patient was discharged to Discharge Diagnoses: Discharge Instructions Discharge Instructions Follow up with: F/u with primary care doctor within 1 week Call MD/Return to Hospital if: Fevers/chills, chest pain, SOB Activity: resume normal activities Eduardo Richmond M.D. Jun 10, 2016 16:33
[2016-06-14 08:37] LABS: HEMOGLOBIN A 98.3 % (94.0-98.0); HEMOGLOBIN A2 1.7 % (0.7-3.1); VITAMIN D 25-OH TOTAL 34 ng/mL (.)
== END 2016-06-10 13:00 | disposition home or self-care (01) | DRG 811 ==
LOC: EMR 16:29 → EDBD 17:21 → 4W 17:21 → EDBEDREQ 18:21 → 4W 19:57
PROC: 30233N1 Transfusion of Nonautologous Red Blood Cells into Peripheral Vein, Percutaneous Approach (ICD-10-PCS; principal; 2016-06-08)
PROC: 0DB68ZX Excision of Stomach, Via Natural or Artificial Opening Endoscopic, Diagnostic (ICD-10-PCS; 2016-06-10)
DX: D50.9 Iron deficiency anemia, unspecified (principal); E43 Unspecified severe protein-calorie malnutrition; N39.0 Urinary tract infection, site not specified; K74.60 Unspecified cirrhosis of liver; E86.0 Dehydration; Z68.1 Body mass index [BMI] 19.9 or less, adult; K44.9 Diaphragmatic hernia without obstruction or gangrene; K20.9 Esophagitis, unspecified; K29.70 Gastritis, unspecified, without bleeding; F10.21 Alcohol dependence, in remission; Z87.891 Personal history of nicotine dependence; R19.5 Other fecal abnormalities; N28.9 Disorder of kidney and ureter, unspecified
CPT/HCPCS: 36415; 71010; 71250; 74000; 76700; 80048; 80053; 80076; 81003; 82140; 82306; 82550; 82607; 82728; 82746; 83010; 83020; 83540; 83550; 83615; 83690; 84443; 84484; 85007; 85025; 85044; 85060; 85610; 85730; 86705; 86709; 86803; 86850; 86900; 86901; 86920; 87086; 87340; 93005; 94003; 94150; J2405